=== PATIENT | male | born 1950 | race Caucasian/White ===

== ENCOUNTER 2017-08-22 14:08 | Emergency (ER) | payer BC, OTHER ==
[2017-08-22 14:17] VITALS: BP 133/89; PULSE 79; TEMP 98.6; BMI 31.3
[2017-08-22 15:31] LABS: URINE APPEARANCE CLEAR; URINE BILIRUBIN NEGATIVE (NEGATIVE); URINE BLOOD NEGATIVE (NEGATIVE); URINE COLOR YELLOW; URINE GLUCOSE (UA) NEGATIVE (NEGATIVE); URINE KETONE NEGATIVE (NEGATIVE); URINE LEUK ESTERASE NEGATIVE (NEGATIVE); URINE NITRITE NEGATIVE (NEGATIVE); URINE PROTEIN NEGATIVE (NEGATIVE); URINE UROBILINOGEN NEGATIVE mg/dL (0.2-1.0)
--- NOTE | 2017-08-22 15:33 | PDOC ---
History of Present Illness - General Chief Complaint: Back Pain Stated Complaint: LOW BACK PAIN Time Seen by Provider: 08/22/17 14:35 History Source: Patient Exam Limitations: No Limitations - History of Present Illness Initial Comments: 08/22/17 15:26 67 yr male with c/o low back pain radiates to both legs for 2 days. Pt states last week he had the same symptoms saw his PMD was given NSAIDS and muscle relaxants felt improved, however pain has returned. Pt states no bowel complaints, pt has history of BPH has urinary urgency and hesitancy at baseline. Occurred: reports: last week Severity: reports: mild Pain Location: reports: back Associated Symptoms (Fall): denies symptoms Past History - Past Medical History Allergies/Adverse Reactions: Allergies Allergy/AdvReac Type Severity Reaction Status Date / Time No Known Allergies Allergy Verified 08/22/17 14:13 Home Medications: Ambulatory Orders Cyclobenzaprine HCl 5 mg PO DAILY 08/22/17 Nabumetone 500 mg PO ASDIR 08/22/17 Naproxen [Naprosyn -] 500 mg PO BID PRN #14 tablet 08/22/17 Other medical history: BPH, arthritis - Surgical History Appendectomy: Yes Cholecystectomy: Yes - Immunization History Immunization Up to Date: Yes - Suicide/Smoking/Psychosocial Hx Smoking History: Former smoker Have you smoked in the past 12 months: No If you are a former smoker, when did you quit?: 2006 Information on smoking cessation initiated: No Hx Alcohol Use: No Drug/Substance Use Hx: No Substance Use Type: None Trauma Specific PMHX - Complaint Specific PMHX Arthritis: No Back Injury: No Neck Injury: No Hx Sacro Iliac Joint Dysfunction: No Review of Systems - Review of Systems Able to Perform ROS?: Yes Is the patient limited Armenian proficient: No Constitutional: No: Symptoms Reported HEENTM: No: Symptoms Reported Respiratory: No: Symptoms reported Cardiac (ROS): No: Symptoms Reported ABD/GI: No: Symptoms Reported : No: Symptoms Reported Musculoskeletal: Yes: See HPI, Back Pain Integumentary: No: Symptoms Reported *Physical Exam - Vital Signs Last Vital Signs Temp Pulse Resp BP Pulse Ox 98.6 F 79 20 133/89 97 08/22/17 14:13 08/22/17 14:13 08/22/17 14:13 08/22/17 14:13 08/22/17 14:13 - Physical Exam General Appearance: Yes: Nourished, Appropriately Dressed HEENT: positive: EOMI, COLLINS, Normal ENT Inspection, TMs Normal, Pharynx Normal Neck: positive: Supple. negative: Tender Respiratory/Chest: positive: Lungs Clear, Normal Breath Sounds Cardiovascular: positive: Regular Rhythm, Regular Rate Comments:: 08/22/17 15:34 Gastrointestinal/Abdominal: positive: Normal Bowel Sounds. negative: Tender Rectal Exam: positive: deferred Musculoskeletal: positive: Normal Inspection. negative: CVA Tenderness, CVA Tenderness (R), CVA Tenderness (L), Decreased Range of Motion, Vertebral Tenderness Extremity: positive: Normal Capillary Refill, Normal Inspection, Normal Range of Motion, Other (neg SLR bilaterally) Integumentary: positive: Normal Color, Dry, Warm Neurologic: positive: Fully Oriented, Alert, Normal Mood/Affect, Normal Response , Motor Strength 04/01 ED Treatment Course - LABORATORY CBC & Chemistry Diagram: 08/22/17 15:30 08/22/17 15:30 - Consult/PCP Time Called: 16:29 Medical Decision Making - Medical Decision Making 08/22/17 16:27 cc: low back pain right side radiates across lower back down to both thighs neg saddle anesthesia neg urinary or bowel dysfunction Pt states pain is worse with sitting, he feels pressure to his low back, worse with walking no abd pain or fever neg diarrhea or constipation will check labs r/o kidney stone r/o muscle spasm 08/22/17 16:[address] Krause and will get Renal US , follow up in the office tomorrow. 08/22/17 16:39 US resulted is normal. pt received one liter IVF and has been dc home with strict follow up tomorrow with his PMD. pt agrees with plan. Pt's agrees with plan as well. 08/22/17 23:39 *DC/Admit/Observation/Transfer Diagnosis at time of Disposition: Elevated BUN Back pain Qualifiers: Back pain location: low back pain Chronicity: unspecified Back pain laterality : bilateral Sciatica presence: without sciatica Qualified Code(s): M54.5 - Low back pain - Discharge Dispostion Disposition: HOME Condition at time of disposition: Improved - Prescriptions Prescriptions: Naproxen [Naprosyn -] 500 mg PO BID PRN #14 tablet PRN Reason: Back Pain - Patient Instructions Additional Instructions: please follow with your doctor tomorrow as discussed bring copies of the labs and tests done today with you take naprosyn for pain as needed drink at least 2 liters of water a day return to ER for any worsening symptoms
[2017-08-22 15:36] LABS: BASOPHIL 0.7 % (0-2.0); EOSINOPHIL 1.5 % (0-4.5); MCH 29.7 pg (25.7-33.7); MCHC 33.8 g/dl (32.0-35.9); MEAN CELL VOLUME 87.8 fl (80-96); MEAN PLT VOLUME 7.1 fl (7.5-11.1); NEUTROPHILS 67.7 % (42.8-82.8); PLATELET COUNT 339 K/MM3 (134-434); RDW 13.8 % (11.9-15.9); WHITE BLOOD COUNT 14.4 K/mm3 (4.0-10.0)
[2017-08-22 16:01] LABS: ALK PHOS 93 U/L (45-117); ANION GAP 6 (8-16); BILIRUBIN,TOTAL 0.9 mg/dL (0.2-1.0); CALCIUM 9.5 mg/dL (8.5-10.1); CO2 29 mmol/L (21-32); CREATININE 1.4 mg/dL (0.7-1.3); GLUCOSE,RANDOM 105 mg/dL (74-106); SGOT/AST 18 U/L (15-37); SGPT/ALT 33 U/L (12-78); TOT PROT 7.8 g/dl (6.4-8.2)
[2017-08-22] MEDS ORDERED: KETOROLAC TROMETHAMINE 30 MG/1 ML VIAL IM ONE (16:10)
[2017-08-22] MEDS ORDERED: KETOROLAC TROMETHAMINE 30 MG/1 ML VIAL ONE (16:16)
[2017-08-22] MEDS ORDERED: SODIUM CHLORIDE 1,000 ML IV STA (16:41)
== END 2017-08-22 19:00 | disposition home or self-care (01) ==
LOC: JERFT 14:08
PROC: 3E0337Z Introduction of Electrolytic and Water Balance Substance into Peripheral Vein, Percutaneous Approach (ICD-10-PCS; principal; 2017-08-22)
PROC: 3E0233Z Introduction of Anti-inflammatory into Muscle, Percutaneous Approach (ICD-10-PCS; 2017-08-22)
DX: M54.5 Low back pain (principal); N40.0 Benign prostatic hyperplasia without lower urinary tract symptoms; R94.4 Abnormal results of kidney function studies
CPT/HCPCS: 36415; 76775-TC; 80053; 81003; 85025; 99281-25